=== PATIENT | female | born 1985 | race Caucasian/White ===

== ENCOUNTER 2017-04-21 08:02 | Emergency (ER) | payer MEDICAID ==
[~2017-04-21] VITALS: Ht 175.3 cm; Wt 69.4 kg
[2017-04-21 08:03] VITALS: BP 108/74
[2017-04-21] MEDS ORDERED: HYDROcodone/APAP 5/325 TABLET PO ONE (08:30)
[2017-04-21] MEDS ORDERED: HYDROcodone/APAP 5/325 TABLET ONE (08:45)
== END 2017-04-21 09:40 | disposition home or self-care (01) ==
LOC: ED 08:56
DX: S63.522A Sprain of radiocarpal joint of left wrist, initial encounter (principal); W00.0XXA Fall on same level due to ice and snow, initial encounter; Y93.89 Activity, other specified; Y99.8 Other external cause status; Y92.410 Unspecified street and highway as the place of occurrence of the external cause
CPT/HCPCS: 29260; 99284

== ENCOUNTER 2018-01-29 03:01 | Emergency (ER) | payer MEDICAID ==
[~2018-01-29] VITALS: Ht 175.3 cm; Wt 79.8 kg
[2018-01-29 03:07] VITALS: BP 133/87
[2018-01-29 03:57] LABS: BASOPHILS # (AUTO) 0.03 x10^3/uL (0-0.1); BASOPHILS % (AUTO) 0 % (0-1); EOSINOPHILS % (AUTO) 1 % (1-7); LYMPHOCYTES # (AUTO) 1.96 x10^3/uL (1-3.4); LYMPHOCYTES % (AUTO) 27 % (22-44); MD NO; MEAN CORPUSCULAR HEMOGLOBIN 29.4 pg (27.0-34.8); MEAN CORPUSCULAR HGB CONC 33.8 g/dL (32.4-35.8); MEAN CORPUSCULAR VOLUME 86.9 fL (80-100); MEAN PLATELET VOLUME 7.6 fL (7.4-10.4); MONOCYTES % (AUTO) 6 % (2-9); NEUTROPHILS # (AUTO) 4.86 x10^3/uL (1.8-6.8); NEUTROPHILS % (AUTO) 66 % (42-75); PLATELET COUNT 247 x10^3/uL (130-400); RED BLOOD COUNT 4.21 x10^6/uL (3.82-5.3); RED CELL DISTRIBUTION WIDTH 14.7 % (9.6-15.2)
[2018-01-29 04:09] LABS: ALBUMIN 3.5 g/dL (3.4-5.0); ANION GAP 8 mmol/L (5-15); CALCIUM 7.9 mg/dL (8.5-10.1); CHLORIDE 109 mmol/L (98-107)
[2018-01-29 04:16] LABS: CREATININE 0.76 mg/dL (0.55-1.02)
[2018-01-29 04:40] LABS: MICROSCOPIC INDICATED
[2018-01-29 04:41] LABS: CULTURE INDICATED? NO
== END 2018-01-29 06:07 | disposition home or self-care (01) ==
LOC: ED 05:42
DX: O20.0 Threatened abortion (principal); Z3A.01 Less than 8 weeks gestation of pregnancy
CPT/HCPCS: 36415; 76801; 80048; 81001; 82040; 84702; 85025; 86901; 99285

== ENCOUNTER 2018-09-24 07:25 | Emergency (ER) | payer MEDICAID ==
[~2018-09-24] VITALS: Ht 175.3 cm; Wt 74.5 kg
[2018-09-24 07:28] VITALS: BP 103/70
--- NOTE | 2018-09-24 07:32 | NUR ---
PT REFUSING WHEELCHAIR
[2018-09-24] MEDS ORDERED: KETOROLAC 60 MG/2 ML ONE (07:45)
--- NOTE | 2018-09-24 07:53 | NUR ---
Patient given discharge instructions and Rx, they have confirmed that they understand the instructions. Patient ambulatory with steady gait.
[2018-09-24] MEDS ORDERED: KETOROLAC 30 MG/1 ML IM ONE (08:00)
== END 2018-09-24 07:58 | disposition home or self-care (01) ==
LOC: ED 07:52
DX: M54.42 Lumbago with sciatica, left side (principal); Z88.2 Allergy status to sulfonamides; Z88.0 Allergy status to penicillin
CPT/HCPCS: 96372; 99283; J1885

== ENCOUNTER 2018-10-26 11:34 | Emergency (ER) | payer MEDICAID ==
[~2018-10-26] VITALS: Ht 175.3 cm; Wt 72.0 kg
[2018-10-26 12:04] VITALS: BP 103/72
[2018-10-26] MEDS ORDERED: LIDOCAINE-MPF 1%, 5ML ONE (12:29)
[2018-10-26] MEDS ORDERED: LIDOCAINE-MPF 1%, 5ML INFIL ONE (12:30)
[2018-10-26] MEDS ORDERED: NEOSPORIN OINT. PKT 1 PACKET ONE (13:11)
== END 2018-10-26 13:19 | disposition home or self-care (01) ==
LOC: ED 13:00
DX: L03.011 Cellulitis of right finger (principal)
CPT/HCPCS: 10060; 99283